=== PATIENT | male | born 1980 | race Two or more races ===

== ENCOUNTER 2023-08-09 02:24 | Emergency (ER) | payer OTHER ==
[~2023-08-09] VITALS: Ht 172.7 cm; Wt 77.1 kg
[2023-08-09] MEDS ORDERED: CEFADROXIL500 MG PO (04:35)
[2023-08-09] MEDS ORDERED: KETO10TA2 PO (04:35)
== END 2023-08-09 05:04 ==
LOC: ER 02:25
DX: S01.01XA Laceration without foreign body of scalp, initial encounter (principal); W19.XXXA Unspecified fall, initial encounter; Y93.89 Activity, other specified; Y92.89 Other specified places as the place of occurrence of the external cause; Y99.8 Other external cause status